=== PATIENT | female | born 1975 | race Caucasian/White ===

== ENCOUNTER → 2021-04-21 16:47 | Outpatient (BNVA) | payer SELFPAY | PROVIDERS: Family Provider Nurse Practitioner Family; PCP Internal Medicine; Visit Provider Nurse Practitioner Family | DX: M25.571 Pain in right ankle and joints of right foot (principal); M79.89 Other specified soft tissue disorders; M25.471 Effusion, right ankle | CPT/HCPCS: 73610 ==

== ENCOUNTER 2022-12-31 21:45 | Emergency (ER) | payer SELFPAY ==
--- NOTE | 2022-12-31 21:47 | XRR_ITS ---
PROCEDURE INFORMATION: Exam: XR Left Knee Exam date and time: 12/31/2022 9:56 PM Age: 47 years old Clinical indication: Injury or trauma; Fall; Sprain or strain; Patella or knee; Left TECHNIQUE: Imaging protocol: Radiologic exam of the left knee. Views: 3 views. COMPARISON: No relevant prior studies available. FINDINGS: Bones/joints: Moderate medial compartment joint space narrowing with minimal tricompartmental spurring consistent with osteoarthritis. No acute fracture dislocation or significant joint effusion. Soft tissues: Normal. Other findings: Three views submitted. XR/XR knee LT 3V* [id number] IMPRESSION: No acute findings.
[2022-12-31 22:00] VITALS: BP 137/84; PULSE 62; RESP 16; TEMP 36.8; O2SAT 97; BMI 45.4
--- NOTE | 2022-12-31 22:02 | ED_ITS ---
HPI - Extremity Injury (Lower) General: Chief Complaint: Extremity Injury, Lower Stated Complaint: left knee pain Time Seen by Provider: 12/31/22 22:01 History of Present Illness: 47-year-old female comes in today with complaints of left knee pain. On exam patient has some joint line tenderness on the medial and lateral sides of the left knee. No obvious swelling is noted. Patient appears nontoxic. 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 Patient was concerned due to increased pain and discomfort over the last 3 weeks. Review of Systems General: Reports: 10 or more systems reviewed and unremarkable except in HPI and below Const: Denies: fever(s) Musc: Reports: extremity pain PFSH ED PFSH: Social History Smoking and tobacco status: current every day smoker Alcohol intake: unknown Physical Exam Const: COMMON NORMALS: alert HENMT: COMMON NORMALS: normocephalic HEAD & SCALP: normocephalic Neck/C-Spine: COMMON NORMALS: full ROM Resp: COMMON NORMALS: normal respiratory effort and clear to auscultation bilaterally AUSCULTATION: clear to auscultation bilaterally Cardio: COMMON NORMALS: regular rate, regular rhythm, S1 normal heart sound present and S2 normal heart sound present RATE: regular rate RHYTHM: regular rhythm HEART SOUNDS: S1 normal heart sound present and S2 normal heart sound present Back/Pelvis: COMMON NORMALS: thoracic and lumbar spine normal to inspection Extremity: LEFT LOWER EXTREMITY: Yes knee joint (Joint line tenderness to palpation. Minimal to no swelling. Normal range ) Left knee: Yes inspection, Yes palpation and Yes ROM Neuro: SENSORIUM/ORIENTATION: Yes alert Skin: COMMON NORMALS: turgor normal GENERAL SKIN EXAM: turgor normal Course Vital Signs: Vital signs: Vital Signs Temperature 98.3 F 12/31/22 22:00 Pulse Rate 62 12/31/22 22:00 Respiratory Rate 16 12/31/22 22:00 Blood Pressure 137/84 12/31/22 22:00 Pulse Oximetry 97 12/31/22 22:00 Oxygen Delivery Me thod 12/31/22 22:00 MDM - Extremity Injury (Lower) Medical Decision Making 47-year-old female comes in today for complaints of left knee pain. On exam patient has some joint line tenderness without any significant swelling. No redness is noted to the joint. Normal range of motion is noted. Vital signs are normal except for some mild elevation in blood pressure. Differential diagnosis includes but not limited to osteoarthritis, meniscal injury, strain. X-rays were unremarkable except for some mild degenerative joint disease. Reviewed exam with patient recommended celecoxib 200 mg daily for the next 2 weeks. Patient reported understanding agreed to plan. Discharge Plan Discharge Patient Disposition: Home Clinical Impression: Osteoarthritis of left knee Qualifiers: Osteoarthritis type: unspecified Qualified Code(s): M17.12 - Unilateral primary osteoarthritis, left knee Condition: Stable Prescriptions: New celecoxib 200 mg capsule 200 mg PO DAILY Qty: 15 0RF No Action albuterol sulfate 2.5 mg /3 mL (0.083 %) solution for nebulization 2.5 mg inhalation Q6H PRN lisinopril 10 mg tablet 10 mg PO ONCE cyclobenzaprine 10 mg tablet 10 mg PO TID Qty: 30 0RF azithromycin 250 mg tablet See Rx Instructions PO .COMPLEX Qty: 6 0RF Rx Instructions: take 500 mg today (day 1), then 250 mg for 4 days (days 2-5) PO Symbicort 160-4.5 mcg/actuation HFA aerosol inhaler 1 puff INHALATION BID Qty: 10.2 0RF albuterol sulfate [ProAir HFA] 90 mcg/actuation HFA aerosol inhaler 2 puff inhalation Q6H PRN (Reason: shortness of breath or wheezing) Qty: 8.5 0RF Discharge Orders: Discharge ED (Routine); Ordered 12/31/22 Ordered By: Julio Cesar Trevino Discharge Diet: Usual diet Discharge Activity: Increase activity as tolerated Patient Instructions: Knee Pain (ED) Activity Restrictions/Additional Instructions: Use celecoxib 200 mg 1 capsule daily for pain and inflammation. Drink plenty of water with medications. Follow-up with primary care in 1 to 2 weeks for recheck. Return to ED for new concerns. Coding Level of Care Code ED Fund Director for David Goldstein
--- NOTE | 2023-01-09 10:56 | DCPLANNER ---
manager material called patient due to no primary care physician - no answer at this time
== END 2022-12-31 22:23 | disposition home or self-care (01) ==
PROVIDERS: Emergency Provider Nurse Practitioner Family
DX: M17.12 Unilateral primary osteoarthritis, left knee (principal); F17.210 Nicotine dependence, cigarettes, uncomplicated
CPT/HCPCS: 73562; 99283

== ENCOUNTER → 2024-01-27 09:53 | Outpatient (BNVA) | payer OTHER, SELFPAY | PROVIDERS: Visit Provider Podiatrist Foot & Ankle Surgery | DX: M76.62 Achilles tendinitis, left leg; M19.071 Primary osteoarthritis, right ankle and foot | CPT/HCPCS: 73630 ==

== ENCOUNTER 2024-01-30 20:00 | Outpatient (CLI) | payer OTHER, SELFPAY | END 2024-01-30 20:01 | disposition home or self-care (01) | LOC: SLEEP 01-31 05:49 | PROVIDERS: Visit Provider Nurse Practitioner Family | DX: G47.01 Insomnia due to medical condition (principal); G47.30 Sleep apnea, unspecified; G47.33 Obstructive sleep apnea (adult) (pediatric); G47.36 Sleep related hypoventilation in conditions classified elsewhere | CPT/HCPCS: 95810 ==

== ENCOUNTER 2024-03-15 21:48 | Emergency (ER) | payer OTHER, SELFPAY ==
[2024-03-15 21:54] VITALS: BP 169/98; PULSE 73; RESP 17; TEMP 36.5; O2SAT 94; BMI 46.3
--- NOTE | 2024-03-15 22:31 | XRR_ITS ---
PROCEDURE INFORMATION: Exam: XR Chest Exam date and time: 03/15/2024 10:35 PM Age: 48 years old Clinical indication: Cough and shortness of breath and wheezing; Patient HX: SOB; Wheezing; Cough TECHNIQUE: Imaging protocol: Radiologic exam of the chest. Views: 1 view. COMPARISON: No relevant prior studies available. FINDINGS: Lungs: Low lung volumes. No consolidation. Pleural spaces: Unremarkable. No pleural effusion. No pneumothorax. Heart/Mediastinum: No cardiomegaly. Bones/joints: No acute fracture. XR/XR chest 1V portable [id number] IMPRESSION: Low lung volumes. No consolidation.
[2024-03-15 22:37] LABS: Basophils # 0.1 10^3/uL (0.0-0.1); Basophils % 0.8 %; Eosinophils # 0.1 10^3/uL (0.0-0.8); Hematocrit 37.3 % (36-47); Lymphocytes # 2.4 10^3/uL (0.8-4.8); Lymphocytes % 34.1 %; Mean Corpuscular HGB Conc 30.8 g/dL (30-55); Mean Corpuscular Hemoglobin 26.5 pg (27-33); Mean Corpuscular Volume 85.9 fl (85-98); Mean Platelet Volume 10.6 fL (7.4-10.4); Monocytes # 0.6 10^3/uL (0.2-0.9); Monocytes % 7.7 %; Neutrophils % 56.1 %; Nucleated Red Blood Cells % 0 %; Platelet Count 285 10^3/cmm (157-399); Red Blood Count 4.34 10^6/uL (3.85-5.65); White Blood Count 7.13 10^3/uL (3.29-11.43)
[2024-03-15 22:48] VITALS: PULSE 73; RESP 18; O2SAT 95
[2024-03-15] MEDS: ipratropium-albuterol 3 mL Neb INHALATION (22:48)
[2024-03-15] MEDS: methylPREDNISolone sod succ 125 mg/2 mL INJ IV (22:48)
[2024-03-15 22:54] VITALS: PULSE 67
[2024-03-15 22:58] LABS: Alanine Aminotransferase 36 U/L (0-33); Albumin Level 4.1 g/dL (3.5-5.2); Alkaline Phosphatase 77 U/L (35-105); Anion Gap 13.5 (5-19); Aspartate Amino Transferase 23 U/L (0-32); Blood Urea Nitrogen 11 mg/dL (6-20); Calcium 9.2 mg/dL (8.5-10.5); Carbon Dioxide 27 mmol/L (22-29); Chloride 106 mmol/L (98-107); Creatinine Clr Calc Pharmacy 108.2246; Globulin 3.1 g/dL (1.3-4.6); Glomerular Filtration Rate 66.5 mL/min (90-130); Glucose 97 mg/dL (65-115); NT Pro B Type Natriuretic Pept 115 pg/mL (0-125); Osmolality Calculated 295 mOsm/kg (285-295); Potassium 3.5 mmol/L (3.5-5.1); Sodium 143 mmol/L (136-145); Total Bilirubin 0.3 mg/dL (0.15-1.2); Total Protein 7.2 g/dL (6.6-8.7)
--- NOTE | 2024-03-15 23:36 | ED_ITS ---
HPI - SOB/Dyspnea 2 General: Chief Complaint: Shortness of Breath/Dyspnea Stated Complaint: sob wheezing cough Time Seen by Provider: 03/15/24 21:54 History of Present Illness: HPI Narrative: 48-year-old female says she has been anderson rt of breath for a month or so. She was seen in the clinic last week, placed on 40 mg prednisone a day, given azithromycin, and inhalers. She has been using these without much relief. Family members note that she had a coughing fit this evening, and coughed so hard she almost passed out . No fever that she knows of. Cough is minimally productive of clear sputum. No swelling to her feet. No overt chest pain. Associated symptoms: Deny abdominal pain, chest pain, dizziness, fever(s), nausea, palpitations or vomiting Review of Systems 2 Const: Denies: fever(s), chills or body aches Eyes: Denies: change in vision Card: Denies: chest pain or palpitations Resp: Reports: dyspnea, productive cough and wheezing GI: Denies: abdominal pain, nausea, vomiting, diarrhea or hematochezia : Denies: difficulty voiding Skin/Breast: Denies: rash Neuro: Denies: headache(s), weakness in extremities, dizziness or confusion PFSH ED 2 PFSH: Social History Smoking and tobacco/nicotine status: current every day tobacco/nicotine user Alcohol intake: unknown Substance/Drug Use: current Substance/Drug use frequency: other Other substance/drug use details: RECENTLY QUIT USING Physical Exam 2 Const: COMMON NORMALS: no acute distress GENERAL APPEARANCE: cooperative; not ill appearing and not frail appearing HENMT: COMMON NORMALS: normocephalic, atraumatic and Normal external nose present HEAD & SCALP: normocephalic and atraumatic FACE & SINUS: normal facial exam and face symmetric NOSE: Normal external nose present Eye: COMMON NORMALS: Equal, round and reactive pupils present and EOMs intact bilaterally PUPIL: Yes Equal, round and reactive pupils present Neck/C-Spine: GENERAL: Yes trachea midline Chest: CHEST: Yes Symmetrical chest wall rise Resp: COMMON NORMALS: normal respiratory effort, No retractions, No use of accessory muscles and clear to auscultation bilaterally AUSCULTATION: clear to auscultation bilaterally Cardio: COMMON NORMALS: regular rate and regular rhythm RATE: regular rate RHYTHM: regular rhythm GI: COMMON NORMALS: Normal to inspection, nondistended, normoactive bowel sounds present Extremity: COMMON NORMALS: no pedal edema Neuro: LEON COMA SCALE: document GCS findings [place] coma scale eye opening: Spontaneous [place] coma scale verbal response: Orientated [place] coma scale motor response: Obey commands [place] coma scale total score: 15 S ENSORY EXAM: Yes extremities (intact) Psych: COMMON NORMALS: speech normal SPEECH: Yes normal speech Skin: COMMON NORMALS: no rashes or lesions noted GENERAL SKIN EXAM: no rashes or lesions noted Course 2 Vital Signs: Vital signs: Vital Signs Temperature 97.7 F 03/16/24 00:51 Pulse Rate 70 03/16/24 00:51 Respiratory Rate 18 03/16/24 00:51 Blood Pressure 169/98 03/16/24 00:51 Pulse Oximetry 95 03/16/24 00:51 Oxygen Delivery Me thod Room Air 03/15/24 22:48 MDM - SOB/Dyspnea Medical Decision Making Patient feels somewhat improved after breathing treatment here. She has received Solu-Medrol as well. White blood cell count is 7.13. CBC is normal. BMP is normal. Chest x-ray shows no consolidation or significant infiltrate. BNP is only 115. Will increase her prednisone to 60 mg/day. She was told to use albuterol every 4 hours while awake whether she is short of breath or not for the next 48 hours, and we will switch her to doxycycline. She knows to return for any worsening symptoms. Lab Data 03/15/24 22:24 03/15/24 22:24 Labs/Radiology: Radiology Impressions Chest X-Ray 03/15/24 22:31 IMPRESSION: Low lung volumes. No consolidation. Laboratory Results WBC 7.13 10^3/uL (3.29-11.43) 03/15/24 22:24 RBC 4.34 10^6/uL (3.85-5.65) 03/15/24 22:24 Hgb 11.50 g/dL (11.27-16.99) 03/15/24 22:24 Hct 37.3 % (36-47) 03/15/24 22:24 MCV 85.9 fl (85-98) 03/15/24 22:24 MCH 26.5 pg (27-33) L 03/15/24 22:24 MCHC 30.8 g/dL (30-55) 03/15/24 22:24 RDW 16.0 % (12.1-15.1) H 03/15/24 22:24 Plt Count 285 10^3/cmm (157-399) 03/15/24 22:24 MPV 10.6 fL (7.4-10.4) H 03/15/24 22:24 Neut % (Auto) 56.1 % 03/15/24 22:24 Lymph % (Auto) 34.1 % 03/15/24 22:24 Love % (Auto) 7.7 % 03/15/24:24 Eos % (Auto) 1.0 % 03/15/24: Baso % (Auto) 0.8 % 03/15/24: Neut # (Auto) 4.00 10^3/uL (1.8-7.7) 03/15/24: Lymph # (Auto) 2.4 10^3/uL (0.8-4.8) 03/15/24 22:24 Love # (Auto) 0.6 10^3/uL (0.2-0.9) 03/15/24 22:24 Eos # (Auto) 0.1 10^3/uL (0.0-0.8) 03/15/24 22: Baso # (Auto) 0.1 10^3/uL (0.0-0.1) 03/15/24: Nucleated RBC % (auto) 0 % 03/15/24: Nucleated RBCs # 0.0 /100WBC 03/15/24 22:24 Sodium 143 mmol/L (136-145) 03/15/24 22:24 Potassium 3.5 mmol/L (3.5-5.1) 03/15/24 22:24 Chloride 106 mmol/L (98-107) 03/15/24 22:24 Carbon Dioxide 27 mmol/L (22-29) 03/15/24 22:24 Anion Gap 13.5 (5-19) 03/15/24 22:24 BUN 11 mg/dL (6-20) 03/15/24 22:24 Creatinine 0.9 mg/dL (0.5-0.9) 03/15/24 22:24 GFR Calculation 66.5 mL/min (90-130) L 03/15/24 22:24 Glucose 97 mg/dL (65-115) 03/15/24 22:24 Calculated Osmolality 295 mOsm/kg (285-295) 03/15/24 22:24 Calcium 9.2 mg/dL (8.5-10.5) 03/15/24 22:24 Total Bilirubin 0.3 mg/dL (0.15-1.2) 03/15/24 22:24 AST 23 U/L (0-32) 03/15/24 22:24 ALT 36 U/L (0-33) H 03/15/24 22:24 Alkaline Phosphatase 77 U/L (35-105) 03/15/24 22:24 NT-Pro-B Natriuret Pep 115 pg/mL (0-125) 03/15/24 22:24 Total Protein 7.2 g/dL (6.6-8.7) 03/15/24 22:24 Albumin 4.1 g/dL (3.5-5.2) 03/15/24 22:24 Globulin 3.1 g/dL (1.3-4.6) 03/15/24 22:24 All radiology interpretation(s) finalized by discharge Discharge Plan Discharge Patient Disposition: Home Clinical Impression: Bronchitis Condition: Stable Prescriptions: New doxycycline hyclate 100 mg tablet 100 mg PO BID 7 Days Qty: 14 0RF prednisone 20 mg tablet 60 mg PO DAILY Qty: 15 0RF No Action albuterol sulfate 2.5 mg /3 mL (0.083 %) solution for nebulization 2.5 mg inhalation Q6H PRN Symbicort 160-4.5 mcg/actuation HFA aerosol inhaler 1 puff INHALATION BID Qty: 10.2 0RF albuterol sulfate [ProAir HFA] 90 mcg/actuation HFA aerosol inhaler 2 puff inhalation Q6H PRN (Reason: shortness of breath or wheezing) Qty: 8.5 0RF lisinopril 20 mg tablet 20 mg PO DAILY furosemide 20 mg tablet 20 mg PO DAILY oxybutynin chloride 5 mg tablet extended release 24hr 5 mg PO DAILY ferrous fumarate [Ferrocite] 324 mg (106 mg iron) tablet 324 mg PO DAILY ergocalciferol (vitamin D2) 1,250 mcg (50,000 unit) capsule 1,250 mcg PO DAILY Discharge Orders: Discharge ED (Routine); Ordered 03/16/24 Ordered By: Ernesto Jaquez Referrals: Latosha Dawson, CUSTOMER ENERGY SPECIALIST [Primary Care Provider] - 1-3 days Patient Instructions: Acute Bronchitis (ED), Opioid Safety, Pain Management Activity Restrictions/Additional Instructions: Use your albuterol inhaler every 4 hours while awake for the next 48 hours whether you feel short of breath or not, then as needed following that. Other medications as directed. We are increasing her prednisone dose to 60 mg daily instead of 40. Stop your current antibiotic in favor of the new antibiotic. Return for worsening shortness of breath despite treatment, chest discomfort, fever despite 2-3 doses of antibiotics, other concerning symptoms. Stand Alone Forms: Work/School Release Coding Level of Care Code ED Golf Course Assistant for David Goldstein
[2024-03-16] MEDS: doxycycline 100 mg Tablet PO (00:32)
[2024-03-16 00:51] VITALS: BP 169/98; PULSE 70; RESP 18; TEMP 36.5; O2SAT 95
== END 2024-03-16 00:54 | disposition home or self-care (01) ==
PROVIDERS: Emergency Provider Emergency Medicine; PCP Nurse Practitioner Family
DX: J40 Bronchitis, not specified as acute or chronic (principal); Z72.0 Tobacco use
CPT/HCPCS: 71045; 80053; 83880; 85025; 94640; 96374; 99285; J2919